=== PATIENT | female | born 1970 | race Caucasian/White ===

== ENCOUNTER 2016-10-18 06:47 | Day surgery (SDC) | payer BC ==
[~2016-10-18] VITALS: Ht 157.5 cm; Wt 74.1 kg
[~2016-10-18 06:47] MED LIST: FERR324T4 PO; LEVO.15 PO; PREN0.01 PO; PROT40TA PO
[2016-10-18 07:21] VITALS: BP 113/79; PULSE 73; RESP 20; TEMP 97.5; O2SAT 99
[2016-10-18] MEDS ORDERED: OMEP40CA2 PO (07:28)
[2016-10-18] MEDS ORDERED: MULT-65 PO (07:28)
[2016-10-18] MEDS ORDERED: LEVO150T7 PO (07:28)
[2016-10-18] MEDS ORDERED: SODIUM CHLOR 0.9% 1000 ML INJ 1,000 ML IV SCH (07:45)
[2016-10-18 08:08] LABS: BICARBONATE 28.9 MEQ/L (21.0-32.0); POTASSIUM 3.7 MEQ/L (3.5-5.1)
[2016-10-18 11:20] VITALS: BP 115/69; PULSE 60; RESP 20; TEMP 98; O2SAT 99
[2016-10-18 12:57] LABS: CSF LYMPHOCYTES 80 %; CSF MONOCYTES 20 %; CSF NEUTROPHILS 0 %; GROSS BLOOD TUBE #1 TRACE (0); GROSS BLOOD TUBE #2 TRACE (0); GROSS BLOOD TUBE #3 0 (0); GROSS BLOOD TUBE #4 0 (0); SUPERNATE COLOR TUBE #1 CLEAR (CLEAR); SUPERNATE COLOR TUBE #2 CLEAR (CLEAR); SUPERNATE COLOR TUBE #3 CLEAR (CLEAR); SUPERNATE COLOR TUBE #4 CLEAR (CLEAR); VOLUME TUBE # 2 3.3 ML; VOLUME TUBE # 3 3.7 ML; VOLUME TUBE # 4 5.7 ML; WBC TUBE #4 2 /MM3 (0-10)
--- NOTE | 2016-10-18 14:44 | RADRPT ---
EXAM DATE/TIME: 10/18/2016 11:06 [place] COMPARISON: No previous studies available for comparison. INDICATIONS : Patient with a history of benign intracranial hypertension MEDICAL HISTORY : Headaches Hypothyroidism SURGICAL HISTORY : Ovary cyst removal Carpal tunnel surgery ENCOUNTER: Initial ACUITY: >1 year PAIN SCORE: 0/10 LUMBAR PUNCTURE TIME: 1110 hours FLUORO TIME: 0.2 minutes ? ACCESS LEVEL: L2-3 OPENING PRESSURE: 17.5 cm of water CLOSING PRESSURE: Not requested. FLUID: 16 cc of clear CSF was collected and sent to the laboratory for analysis. PROCEDURE : 1. Fluoroscopic guided lumbar puncture. 2. Recording of opening pressure. The risks, benefits and alternatives to the procedure were explained and verbal and written consent w as obtained. The site was prepped in sterile fashion. Full sterile technique was used, including ca p, mask, sterile gloves and gown and a large sterile sheet. Hand hygiene and 2% chlorhexidine and/or betadine/alcohol prep was utilized per protocol for cutaneous antisepsis. The skin and subcutaneous tissues were infiltrated with local anesthetic solution. With fluoroscopic guidance the lumbar thecal sac was punctured at the above level described above and the opening pressure was recorded. The above described fluid was removed without difficulty. The patient tolerated the procedure well and there were no complications. CONCLUSION: Uncomplicated fluoroscopically guided lumbar puncture with pressures as above. Driss Johnson MD on October 18, 2016 at 14:39 Board Certified Radiologist. This report was verified electronically.
[2016-10-20 16:12] LABS: ALBUMIN SERUM 3790 mg/dL (3200 - 4800); IGG CSF 2.3 mg/dL (<=8.1); IGG INDEX CSF 0.56 (<=0.85); IGG SERUM 1360 mg/dL (767 - 1590); IGG/ALBUMIN SERUM 0.36 (<=0.40); OLIGOCLONAL BANDING CSF 0 bands (()); OLIGOCLONAL BANDING INTERPRET 0 bands (<4); OLIGOCLONAL BANDING SERUM 0 bands (())
[2016-10-20 16:19] LABS: LYME IGG IMMUNOBLOT CSF None Detected bands (None Detected); LYME IGM IMMUNOBLOT CSF None Detected bands (None Detected)
[2016-10-21 11:39] LABS: CSF CRYPTOCOCCUS AG CONF ND (NOT DETECTD)
== END 2016-10-18 13:40 | disposition home or self-care (01) ==
LOC: HROP 06:47 → HRIP 06:50 → HROP 13:40
PROVIDERS: ATTEND Psychiatry & Neurology Neurology
DX: G93.2 Benign intracranial hypertension (principal); R51 Headache; E03.9 Hypothyroidism, unspecified
CPT/HCPCS: 62270; 77003; 80048; 82040; 82042; 82784; 82945; 83090; 83873; 83916; 84157; 86403; 86592; 86618; 87070; 87102; 87205; 87206; 89051; J7030

== ENCOUNTER → 2016-10-23 | Day surgery (SDC) | payer BC ==
[~2016-10-23] MED LIST changes: +CHLORHEXIDINE GLUCONATE 2 % 1 PACK (2 CLOTHS) TOPICAL PRN; -FERR324T4 PO; +INSULIN HUMAN REGULAR 1,000 UNITS/10 ML VIAL SQ PRN; +LACTATED RINGER'S 1000 ML IV PRN; -LEVO.15 PO; +LEVO150T7 PO; +METOPROLOL TARTRATE 25 MG TAB PO PRN; +MULT-65 PO; +OMEP40CA2 PO; +POVIDONE IODINE 5% (ANTISEPSIS KIT) 4 APPLICATIONS EACH NARE PRN; -PREN0.01 PO; -PROT40TA PO; +SODIUM CHLORID 0.9% 500 ML IV PRN
[2016-10-23 12:40] VITALS: BP 113/63; PULSE 62; RESP 18; TEMP 97.7; O2SAT 100
== END | disposition home or self-care (01) ==
LOC: HSDC 10:03
PROVIDERS: ATTEND Radiology Diagnostic Radiology
DX: G97.1 Other reaction to spinal and lumbar puncture (principal); K21.9 Gastro-esophageal reflux disease without esophagitis
CPT/HCPCS: 62273